=== PATIENT | male | born 1985 | race Caucasian/White ===

== ENCOUNTER 2023-07-05 18:09 | Emergency (ER) | payer SELFPAY ==
[2023-07-05] MEDS: Ketorolac 60 MG/2 ML SDV IM ONE (18:29)
[2023-07-05] MEDS: Ampicillin/Sulbactam Na 3 GM in Sodium Chloride 0.9% 100 ML IV ONE (20:12)
[2023-07-05] MEDS: Diphtheria,Pertussis(Acell),Tetanus Vaccine 0.5 ML Syringe IM ONE (20:47)
== END 2023-07-05 20:45 | disposition home or self-care (01) ==
LOC: JD.ED 18:09
DX: S51.851A Open bite of right forearm, initial encounter (principal); S61.452A Open bite of left hand, initial encounter; F17.210 Nicotine dependence, cigarettes, uncomplicated; Z88.2 Allergy status to sulfonamides; Z23 Encounter for immunization; Z79.899 Other long term (current) drug therapy; W54.0XXA Bitten by dog, initial encounter
CPT/HCPCS: 73110-26-RT; 73110-RT; 73130-26-LT; 73130-LT; 90471; 90715; 96365; 96372; 99282; 99283-25; J0295; J1885; J3490